=== PATIENT | female | born 1935 | race Caucasian/White ===

== ENCOUNTER 2021-05-07 14:06 | Inpatient (IN) | payer OTHER, SELFPAY ==
[~2021-05-07] VITALS: Ht 144.8 cm; Wt 79.4 kg
[2021-05-07 14:17] VITALS: BP_SYST 159
[2021-05-07] MEDS ORDERED: MORPHINE 2 MG/ML INJ. SYRINGE IVP ONE ×2 (14:30→16:00)
[2021-05-07] MEDS ORDERED: ONDANSETRON HCL 4 MG/2 ML VIAL IVP ONE (14:30)
[2021-05-07] MEDS ORDERED: ALLO100T PO (14:51)
[2021-05-07] MEDS ORDERED: NEU300 PO (14:51)
[2021-05-07] MEDS ORDERED: GLIP10TA21 PO (14:51)
[2021-05-07] MEDS ORDERED: ISOS30TA85 PO (14:51)
[2021-05-07] MEDS ORDERED: LIP20 PO (14:51)
[2021-05-07] MEDS ORDERED: BUME1TAB8 PO (14:51)
[2021-05-07] MEDS ORDERED: DILT240C91 PO (14:51)
[2021-05-07] MEDS ORDERED: ASA81 PO (14:51)
[2021-05-07] MEDS ORDERED: CYCL10TA24 PO (14:51)
[2021-05-07 15:24] LABS: BASOPHILS # (AUTO) 0.1 K/uL (0.0-0.2); BASOPHILS % (AUTO) 0.6 % (0.0-2.0); EOSINOPHILS # (AUTO) 0.1 K/uL (0.0-0.4); EOSINOPHILS % (AUTO) 0.9 % (0.0-4.0); HEMATOCRIT 39.3 % (36-48); HEMOGLOBIN 12.9 g/dL (12.0-16.0); LYMPHOCYTES # (AUTO) 1.5 K/uL (1.0-5.5); MEAN CORPUSCULAR HEMOGLOBIN 29 pg (27-31); MEAN CORPUSCULAR HGB CONC 33 % (32-36); MEAN CORPUSCULAR VOLUME 89 fL (79.0-98.0); MONOCYTES # (AUTO) 0.6 K/uL (0.0-1.0); MONOCYTES % (AUTO) 4.4 % (1.7-9.3); NEUTROPHILS # (AUTO) 10.5 K/uL (1.8-7.7); NEUTROPHILS % (AUTO) 82.1 % (40.0-70.0); PLATELET COUNT (AUTO) 179 K/uL (130-430); RED BLOOD CELL COUNT(AUTO) 4.44 MIL/uL (4.2-6.2); RED CELL DISTRIBUTION WIDTH 15.2 % (9.0-15.0); WHITE BLOOD COUNT (AUTO) 12.8 K/uL (4.8-10.8)
[2021-05-07 15:39] LABS: ANION GAP 12 (5-15); CALCIUM 8.7 mg/dL (8.4-11.0); CHLORIDE 103 mmol/L (98-107); GLUCOSE 118 mg/dL (70-99); SODIUM SERUM 139 mmol/L (136-145); UREA NITROGEN, BLOOD 33 mg/dL (8-21)
[2021-05-07 15:45] LABS: ALANINE AMINOTRANSFERASE 16 U/L (12-78); ALBUMIN 3.2 g/dL (3.4-4.8); ASPARTATE AMINOTRANSFERASE 22 U/L (10-37); TOTAL BILIRUBIN 0.4 mg/dL (0.0-1.0)
[2021-05-07] MEDS ORDERED: MORPHINE 2 MG/ML INJ. SYRINGE IVP PRN (16:00)
[2021-05-07] MEDS ORDERED: ONDANSETRON HCL 4 MG/2 ML VIAL IVP PRN (16:00)
[2021-05-07] MEDS ORDERED: METOCLOPRAMIDE HCL 10 MG/2 ML VIAL IVP PRN (16:00)
[2021-05-07] MEDS ORDERED: ACETAMINOPHEN 325 MG TABLET PO PRN (16:00)
[2021-05-07 17:24] LABS: BILIRUBIN,URINE NEGATIVE (NEGATIVE); BLOOD, URINE NEGATIVE (NEGATIVE); CLARITY/URINE CLEAR (CLEAR); COLOR,URINE YELLOW (YELLOW); GLUCOSE,URINE NEGATIVE (NEGATIVE); KETONES,URINE NEGATIVE (NEGATIVE); LEUKOCYTE ESTERASE ,URINE NEGATIVE (NEGATIVE); NITRITE, URINE NEGATIVE (NEGATIVE); PROTEIN URINE 1+ (NEGATIVE); UROBILINOGEN,URINE 0.2 (0.2-1.0)
[2021-05-07] MEDS: MORPHINE 4 MG INJ. 4 MG/ML VIAL IVP PRN ×2 (17:35→22:26)
[2021-05-07 19:32] LABS: BACTERIA,URINE FEW /HPF (None Seen); RBC,URINE 0-3 /HPF (0-3)
[2021-05-07 19:33] LABS: MUCUS,URINE None Seen /LPF (None Seen); OTHER CASTS, URINE WBC CASTS 1+ /LPF (None Seen)
[2021-05-07 20:50] VITALS: BP_SYST 166
[2021-05-07] MEDS: GABAPENTIN 300 MG CAPSULE PO SCH (22:08)
[2021-05-07] MEDS: ATORVASTATIN 20 MG TABLET PO SCH (22:08)
[2021-05-07] MEDS: CYCLOBENZAPRINE HCL 10 MG TABLET (FLEXERIL) PO SCH (22:08)
[2021-05-08] VITALS: BP_SYST 166
[2021-05-08] MEDS ORDERED: DEXTROSE 50% JECT 50 ML DISP.SYRIN IVP PRN (07:15)
[2021-05-08] MEDS ORDERED: D5W 1,000 ML IV PRN (07:15)
[2021-05-08] MEDS ORDERED: GLUCOSE (DEXTROSE) ORAL GEL -Adults PO PRN (07:15)
[2021-05-08 08:00] VITALS: BP_SYST 163
[2021-05-08] MEDS: NACL 0.9% 1,000 ML IV SCH (08:35)
[2021-05-08] MEDS: DILTIAZEM HCL 240 MG CAP.SR.24H PO SCH (08:52)
[2021-05-08] MEDS: ISOSORBIDE MONONITRATE 30 MG TAB.ER.24H PO SCH (08:52)
[2021-05-08] MEDS: ASPIRIN 81 MG TAB.CHEW PO SCH (09:00)
[2021-05-08] MEDS: GABAPENTIN 300 MG CAPSULE PO SCH ×2 (09:00→21:30)
[2021-05-08] MEDS: BUMETANIDE 1 MG TABLET PO SCH (09:00)
[2021-05-08] MEDS: CYCLOBENZAPRINE HCL 10 MG TABLET (FLEXERIL) PO SCH ×3 (09:00→21:30)
[2021-05-08] MEDS: ALLOPURINOL 100 MG TABLET (ZYLOPRIM) PO SCH (09:00)
[2021-05-08] MEDS: INSULIN REGULAR, HUMAN 100 UNITS/ML, 10 ML VIAL (humuLIN R) SUBCUT PRN ×3 (12:09→21:36)
[2021-05-08 12:15] VITALS: BP_SYST 130
[2021-05-08 16:00] VITALS: BP_SYST 127
[2021-05-08 20:10] VITALS: BP_SYST 156
[2021-05-08] MEDS: ATORVASTATIN 20 MG TABLET PO SCH (21:30)
[2021-05-09] VITALS (7 sets, daily range): BP systolic 141–164
[2021-05-09] MEDS: NACL 0.9% 1,000 ML IV SCH ×2 (03:24→23:15)
[2021-05-09] MEDS: MORPHINE 4 MG INJ. 4 MG/ML VIAL IVP PRN (05:10)
[2021-05-09] MEDS: INSULIN REGULAR, HUMAN 100 UNITS/ML, 10 ML VIAL (humuLIN R) SUBCUT PRN ×4 (05:38→22:06)
[2021-05-09] MEDS ORDERED: POLYMYXIN 500,000/BACIT.10,000 UNITS in NS IRR 1 L IR ONE (06:54)
[2021-05-09] MEDS ORDERED: MORPHINE SULFATE 10MG/10ML PF AMP EP ONE (07:00)
[2021-05-09] MEDS ORDERED: BUPIVACAINE /DEX PF 0.75% SPINAL 2 ML AMP INJ ONE (07:00)
[2021-05-09] MEDS ORDERED: PROPOFOL 200MG/ 20ML VIAL (DIPRIVAN) IV ONE (07:00)
[2021-05-09] MEDS ORDERED: CLINDAMYCIN PHOSPHATE 600 mg/50mL D5W IV ONE (07:00)
[2021-05-09] MEDS ORDERED: NS IRRIG SOLN 1000 ML IR ONE (07:00)
[2021-05-09] MEDS ORDERED: NS 1000 ML IV.SOLN IV ONE (07:00)
[2021-05-09] MEDS ORDERED: LR 1,000 ML IV.SOLN IV ONE (07:00)
[2021-05-09] MEDS ORDERED: WATER FOR IRRIGATION,STERILE 1,000 ML IRRIG.SOLN IR ONE (07:00)
[2021-05-09] MEDS ORDERED: ONDANSETRON HCL 4 MG/2 ML VIAL IVP PRN (08:15)
[2021-05-09] MEDS ORDERED: METOCLOPRAMIDE HCL 10 MG/2 ML VIAL IVP PRN (08:15)
[2021-05-09] MEDS ORDERED: fentaNYL CITRATE/PF 100 MCG/2 ML AMP IVP PRN ×2 (08:15)
[2021-05-09] MEDS: ISOSORBIDE MONONITRATE 30 MG TAB.ER.24H PO SCH (09:00)
[2021-05-09] MEDS: ALLOPURINOL 100 MG TABLET (ZYLOPRIM) PO SCH (09:00)
[2021-05-09] MEDS: CYCLOBENZAPRINE HCL 10 MG TABLET (FLEXERIL) PO SCH ×3 (09:00→22:02)
[2021-05-09] MEDS: BUMETANIDE 1 MG TABLET PO SCH (09:00)
[2021-05-09] MEDS: ASPIRIN 81 MG TAB.CHEW PO SCH (09:00)
[2021-05-09] MEDS: DILTIAZEM HCL 240 MG CAP.SR.24H PO SCH (09:00)
[2021-05-09] MEDS: GABAPENTIN 300 MG CAPSULE PO SCH ×2 (09:00→22:02)
[2021-05-09 11:22] LABS: BASOPHILS # (AUTO) 0.1 K/uL (0.0-0.2); BASOPHILS % (AUTO) 0.5 % (0.0-2.0); HEMATOCRIT 31.6 % (36-48); HEMOGLOBIN 10.1 g/dL (12.0-16.0); LYMPHOCYTES # (AUTO) 1.3 K/uL (1.0-5.5); MEAN CORPUSCULAR HEMOGLOBIN 29 pg (27-31); MEAN CORPUSCULAR HGB CONC 32 % (32-36); MEAN CORPUSCULAR VOLUME 91 fL (79.0-98.0); MONOCYTES # (AUTO) 0.8 K/uL (0.0-1.0); MONOCYTES % (AUTO) 6.4 % (1.7-9.3); NEUTROPHILS # (AUTO) 9.8 K/uL (1.8-7.7); NEUTROPHILS % (AUTO) 82.1 % (40.0-70.0); PLATELET COUNT (AUTO) 144 K/uL (130-430); RED BLOOD CELL COUNT(AUTO) 3.47 MIL/uL (4.2-6.2); RED CELL DISTRIBUTION WIDTH 15.3 % (9.0-15.0)
[2021-05-09] MEDS: OXYCODONE/ACETAMINOPHEN 5-325 TABLET PO PRN ×2 (14:45→22:03)
[2021-05-09] MEDS: ATORVASTATIN 20 MG TABLET PO SCH (22:02)
[2021-05-09] MEDS: ENOXAPARIN SODIUM 40 MG/0.4 ML SYRINGE SUBCUT SCH (22:04)
[2021-05-10] VITALS: BP_SYST 142
[2021-05-10] MEDS: INSULIN REGULAR, HUMAN 100 UNITS/ML, 10 ML VIAL (humuLIN R) SUBCUT PRN ×3 (06:16→16:17)
[2021-05-10 08:00] VITALS: BP_SYST 159
[2021-05-10] MEDS: BUMETANIDE 1 MG TABLET PO SCH (08:47)
[2021-05-10] MEDS: GABAPENTIN 300 MG CAPSULE PO SCH ×2 (08:48→22:04)
[2021-05-10] MEDS: DILTIAZEM HCL 240 MG CAP.SR.24H PO SCH (08:48)
[2021-05-10] MEDS: ASPIRIN 81 MG TAB.CHEW PO SCH (08:48)
[2021-05-10] MEDS: ALLOPURINOL 100 MG TABLET (ZYLOPRIM) PO SCH (08:49)
[2021-05-10] MEDS: CYCLOBENZAPRINE HCL 10 MG TABLET (FLEXERIL) PO SCH ×3 (08:49→22:04)
[2021-05-10] MEDS: ISOSORBIDE MONONITRATE 30 MG TAB.ER.24H PO SCH (08:49)
[2021-05-10] MEDS: NACL 0.9% 1,000 ML IV SCH (10:00)
[2021-05-10] MEDS: OXYCODONE/ACETAMINOPHEN 5-325 TABLET PO PRN ×2 (10:22→22:17)
[2021-05-10 12:00] VITALS: BP_SYST 153
[2021-05-10 16:00] VITALS: BP_SYST 152
[2021-05-10 19:34] VITALS: BP_SYST 127
[2021-05-10] MEDS: ATORVASTATIN 20 MG TABLET PO SCH (22:03)
[2021-05-10] MEDS: ENOXAPARIN SODIUM 40 MG/0.4 ML SYRINGE SUBCUT SCH (22:04)
[2021-05-11 00:58] VITALS: BP_SYST 144
[2021-05-11] MEDS: INSULIN REGULAR, HUMAN 100 UNITS/ML, 10 ML VIAL (humuLIN R) SUBCUT PRN ×4 (06:12→21:10)
[2021-05-11] MEDS: NACL 0.9% 1,000 ML IV SCH (06:15)
[2021-05-11 06:22] LABS: BASOPHILS # (AUTO) 0.1 K/uL (0.0-0.2); BASOPHILS % (AUTO) 0.7 % (0.0-2.0); EOSINOPHILS # (AUTO) 0.1 K/uL (0.0-0.4); EOSINOPHILS % (AUTO) 0.6 % (0.0-4.0); HEMATOCRIT 23.9 % (36-48); HEMOGLOBIN 7.8 g/dL (12.0-16.0); LYMPHOCYTES # (AUTO) 2.7 K/uL (1.0-5.5); LYMPHOCYTES % (AUTO) 30.1 % (20.5-51.5); MEAN CORPUSCULAR HEMOGLOBIN 29 pg (27-31); MEAN CORPUSCULAR HGB CONC 33 % (32-36); MEAN CORPUSCULAR VOLUME 89 fL (79.0-98.0); MONOCYTES # (AUTO) 0.8 K/uL (0.0-1.0); NEUTROPHILS # (AUTO) 5.3 K/uL (1.8-7.7); NEUTROPHILS % (AUTO) 59.6 % (40.0-70.0); PLATELET COUNT (AUTO) 168 K/uL (130-430); RED BLOOD CELL COUNT(AUTO) 2.68 MIL/uL (4.2-6.2); RED CELL DISTRIBUTION WIDTH 15.4 % (9.0-15.0); WHITE BLOOD COUNT (AUTO) 8.9 K/uL (4.8-10.8)
[2021-05-11 06:52] LABS: ALANINE AMINOTRANSFERASE 18 U/L (12-78); ALBUMIN 2.2 g/dL (3.4-4.8); ANION GAP 10 (5-15); ASPARTATE AMINOTRANSFERASE 33 U/L (10-37); CALCIUM 7.7 mg/dL (8.4-11.0); CHLORIDE 102 mmol/L (98-107); CREATININE 1.14 mg/dL (0.55-1.30); GLUCOSE 162 mg/dL (70-99); SODIUM SERUM 135 mmol/L (136-145); TOTAL BILIRUBIN 0.5 mg/dL (0.0-1.0); UREA NITROGEN, BLOOD 23 mg/dL (8-21)
[2021-05-11 08:13] VITALS: BP_SYST 136
[2021-05-11] MEDS: ALLOPURINOL 100 MG TABLET (ZYLOPRIM) PO SCH (08:38)
[2021-05-11] MEDS: CYCLOBENZAPRINE HCL 10 MG TABLET (FLEXERIL) PO SCH ×3 (08:38→21:02)
[2021-05-11] MEDS: ASPIRIN 81 MG TAB.CHEW PO SCH (08:39)
[2021-05-11] MEDS: GABAPENTIN 300 MG CAPSULE PO SCH ×2 (08:39→21:02)
[2021-05-11] MEDS: DILTIAZEM HCL 240 MG CAP.SR.24H PO SCH (08:40)
[2021-05-11] MEDS: ISOSORBIDE MONONITRATE 30 MG TAB.ER.24H PO SCH (08:40)
[2021-05-11] MEDS: BUMETANIDE 1 MG TABLET PO SCH (08:41)
[2021-05-11 11:21] VITALS: BP_SYST 140
[2021-05-11] MEDS: OXYCODONE/ACETAMINOPHEN 5-325 TABLET PO PRN (11:50)
[2021-05-11 15:29] VITALS: BP_SYST 111
[2021-05-11 20:00] VITALS: BP_SYST 123
[2021-05-11] MEDS: ATORVASTATIN 20 MG TABLET PO SCH (21:02)
[2021-05-11] MEDS: ENOXAPARIN SODIUM 40 MG/0.4 ML SYRINGE SUBCUT SCH (21:03)
[2021-05-12] VITALS: BP_SYST 139
[2021-05-12] MEDS: INSULIN REGULAR, HUMAN 100 UNITS/ML, 10 ML VIAL (humuLIN R) SUBCUT PRN ×2 (06:05→11:36)
[2021-05-12 06:29] LABS: HEMATOCRIT 28.2 % (36-48); HEMOGLOBIN 9.5 g/dL (12.0-16.0)
[2021-05-12 06:42] LABS: PROTHROMBIN TIME 10.6 SECS (9.5-12.5)
[2021-05-12 07:48] VITALS: BP_SYST 147
[2021-05-12 08:33] LABS: HEMATOCRIT 26.9 % (36-48); HEMOGLOBIN 9.2 g/dL (12.0-16.0)
[2021-05-12] MEDS: CYCLOBENZAPRINE HCL 10 MG TABLET (FLEXERIL) PO SCH (09:01)
[2021-05-12] MEDS: ASPIRIN 81 MG TAB.CHEW PO SCH (09:01)
[2021-05-12] MEDS: ALLOPURINOL 100 MG TABLET (ZYLOPRIM) PO SCH (09:01)
[2021-05-12] MEDS: GABAPENTIN 300 MG CAPSULE PO SCH (09:01)
[2021-05-12] MEDS: BUMETANIDE 1 MG TABLET PO SCH (09:02)
[2021-05-12] MEDS: DILTIAZEM HCL 240 MG CAP.SR.24H PO SCH (09:02)
[2021-05-12] MEDS: ISOSORBIDE MONONITRATE 30 MG TAB.ER.24H PO SCH (09:02)
[2021-05-12 12:33] VITALS: BP_SYST 141
[2021-05-12 13:57] VITALS: BP_SYST 141
== END 2021-05-12 15:20 | DRG 481 ==
LOC: SED 14:06 → SMU 15:37
PROVIDERS: ADMIT Internal Medicine Hospice and Palliative Medicine; ATTEND Internal Medicine Hospice and Palliative Medicine
PROC: 0QS704Z Reposition Left Upper Femur with Internal Fixation Device, Open Approach (ICD-10-PCS; principal; 2021-05-09 07:00)
PROC: 30233N1 Transfusion of Nonautologous Red Blood Cells into Peripheral Vein, Percutaneous Approach (ICD-10-PCS; 2021-05-12)
DX: S72.142A Displaced intertrochanteric fracture of left femur, initial encounter for closed fracture (principal); D62 Acute posthemorrhagic anemia; I25.10 Atherosclerotic heart disease of native coronary artery without angina pectoris; I10 Essential (primary) hypertension; E78.5 Hyperlipidemia, unspecified; S72.045A Nondisplaced fracture of base of neck of left femur, initial encounter for closed fracture; W18.39XA Other fall on same level, initial encounter; E11.65 Type 2 diabetes mellitus with hyperglycemia; Z20.822 Contact with and (suspected) exposure to COVID-19; Z79.82 Long term (current) use of aspirin; Z79.899 Other long term (current) drug therapy; Y93.89 Activity, other specified; Y92.89 Other specified places as the place of occurrence of the external cause; Y99.8 Other external cause status; Z98.61 Coronary angioplasty status; Z86.79 Personal history of other diseases of the circulatory system
CPT/HCPCS: 36415; 70450-TC; 71045; 72192-TC; 73552; 76001; 76376; 80053; 81000; 82962; 84484; 85018; 85025; 85049-TC; 85384; 85610-TC; 85730-TC; 86886; 86900; 86901; 86920; 87081; 93005; 93306; 94010; 94760; 96374; 96375; 96376; 97110-GP; 97112-GP; 97163-GP; 97530-GP; 99285; J1650; J1815; J2270; J2274; J2405; J2704; J2765; J3490; J7030; J7120; P9021